=== PATIENT | male | born 1930 | race Caucasian/White ===

== ENCOUNTER 2017-10-05 15:53 | Inpatient (IN) | payer OTHER ==
[~2017-10-05] VITALS: Ht 177.8 cm; Wt 80.5 kg
[~2017-10-05 15:53] MED LIST: ACET500T63 PO; ASPI81TA59 PO; CARB1TAB2 PO; DOCU-131 PO; DORZ10DR21 EACHEYE; ENOX40SY4 SQ; MULT-208 PO; NYST60PO TP; OMEP20CA9 PO; SIMV40TA3 PO; TRAM-47 PO; [UNRECOGNIZED DRUG - CODE] PO
[2017-10-05] MEDS ORDERED: SODIUM CHLORIDE FLUSH 10ML SYR IVF ONE (16:30)
[2017-10-05 16:54] LABS: MEAN CORPUSCULAR HEMOGLOBIN 32.2 pg (27.5-34.5); MEAN CORPUSCULAR VOLUME 94.5 fL (81-97); MEAN PLATELET VOLUME 9.1 fL (7.4-10.4); PLATELET COUNT 180 x10^3/uL (130-400); RED BLOOD COUNT 4.65 x10^6/uL (4.38-5.82); RED CELL DISTRIBUTION WIDTH 14.2 % (9.4-14.8)
[2017-10-05 17:06] LABS: ALANINE AMINOTRANSFERASE 12 U/L (12-78); ALBUMIN 3.8 g/dL (3.4-5.0); ANION GAP 9 mmol/L (5-15); CALCIUM 8.5 mg/dL (8.5-10.1); CHLORIDE 105 mmol/L (98-107); CREATININE 1.14 mg/dL (0.7-1.3)
[2017-10-05 17:11] LABS: ALKALINE PHOSPHATASE 68 U/L (45-117); BILIRUBIN,TOTAL 1.1 mg/dL (0.2-1.0); TOTAL PROTEIN 7.4 g/dL (6.4-8.2); TROPONIN I < 0.015 ng/mL (0.000-0.045)
[2017-10-05 17:14] LABS: CULTURE INDICATED? NO; MICROSCOPIC NOT IND
[2017-10-05 17:42] LABS: BASOPHILS # (AUTO) 0.02 x10^3/uL (0-0.1); BASOPHILS % (AUTO) 0 % (0-1); EOSINOPHILS # (AUTO) 0.04 x10^3/uL (0-0.4); EOSINOPHILS % (AUTO) 0 % (1-7); LYMPHOCYTES # (AUTO) 2.06 x10^3/uL (1-3.4); LYMPHOCYTES % (AUTO) 13 % (22-44); MD NO; MONOCYTES # (AUTO) 2.15 x10^3/uL (0.2-0.8); MONOCYTES % (AUTO) 14 % (2-9); NEUTROPHILS # (AUTO) 11.49 x10^3/uL (1.8-6.8); NEUTROPHILS % (AUTO) 73 % (42-75)
[2017-10-05] MEDS ORDERED: OMNIPAQUE 350 MG/ML, 100ML BOTTLE ONE (19:15)
[2017-10-05] MEDS ORDERED: CEFTRIAXONE PMX 1GM/50ML 50 ML IV ONE (20:00)
[2017-10-05] MEDS ORDERED: CEFTRIAXONE PMX 1GM/50ML 50 ML ONE (20:50)
[2017-10-05] MEDS ORDERED: POLYETHYLENE GLYCOL 17 GM PACKET PO PRN (21:00)
[2017-10-05] MEDS ORDERED: BISACODYL 10 MG SUPP PR PRN (21:00)
[2017-10-05] MEDS ORDERED: CALCIUM CARBONATE 500 MG TAB.CHEW PO PRN (21:00)
[2017-10-05] MEDS ORDERED: ACETAMINOPHEN 325 MG TABLET PO PRN (21:00)
[2017-10-05] MEDS: DORZOLAMIDE HCL EACHEYE SCH (21:00)
[2017-10-05] MEDS ORDERED: ONDANSETRON ODT 4 MG PO PRN (21:00)
[2017-10-05] MEDS: HEPARIN 5,000 UNITS/ML, 1ML SQ SCH (21:00)
[2017-10-05] MEDS: TIMOLOL MALEAT EACHEYE SCH (21:00)
[2017-10-05 22:12] VITALS: BP 122/70
[2017-10-05] MEDS: CARBIDOPA/LEVODOPA 25 MG/100 MG TABLET PO SCH (23:27)
[2017-10-05] MEDS: SIMVASTATIN 40 MG TABLET PO SCH (23:27)
[2017-10-05] MEDS: SODIUM CHLORIDE 0.9% 1,000 ML IV SCH (23:27)
[2017-10-06 02:09] VITALS: BP 154/81
[2017-10-06 03:07] LABS: CLOSTRIDIUM DIFFICILE ANTIGEN NEGATIVE; CLOSTRIDIUM DIFFICILE TOXIN NEGATIVE (Negative)
[2017-10-06 05:28] LABS: MEAN CORPUSCULAR HEMOGLOBIN 31.9 pg (27.5-34.5); MEAN CORPUSCULAR HGB CONC 33.7 g/dL (33.2-36.2); MEAN CORPUSCULAR VOLUME 94.5 fL (81-97); MEAN PLATELET VOLUME 8.8 fL (7.4-10.4); PLATELET COUNT 167 x10^3/uL (130-400); RED BLOOD COUNT 4.47 x10^6/uL (4.38-5.82)
[2017-10-06 05:43] LABS: CHLORIDE 105 mmol/L (98-107)
[2017-10-06] MEDS: HEPARIN 5,000 UNITS/ML, 1ML SQ SCH ×3 (05:49→21:21)
[2017-10-06 05:50] LABS: ALANINE AMINOTRANSFERASE 9 U/L (12-78); ALBUMIN 3.5 g/dL (3.4-5.0); ALKALINE PHOSPHATASE 62 U/L (45-117); ANION GAP 9 mmol/L (5-15); CALCIUM 8.5 mg/dL (8.5-10.1); CREATININE 0.92 mg/dL (0.7-1.3); TOTAL PROTEIN 7.2 g/dL (6.4-8.2)
[2017-10-06 06:07] LABS: BASOPHILS # (AUTO) 0.06 x10^3/uL (0-0.1); BASOPHILS % (AUTO) 0 % (0-1); EOSINOPHILS # (AUTO) 0.03 x10^3/uL (0-0.4); EOSINOPHILS % (AUTO) 0 % (1-7); LYMPHOCYTES # (AUTO) 2.05 x10^3/uL (1-3.4); LYMPHOCYTES % (AUTO) 14 % (22-44); MD SCAN; MONOCYTES # (AUTO) 1.81 x10^3/uL (0.2-0.8); MONOCYTES % (AUTO) 12 % (2-9); NEUTROPHILS # (AUTO) 10.98 x10^3/uL (1.8-6.8); NEUTROPHILS % (AUTO) 74 % (42-75)
[2017-10-06 07:06] VITALS: BP 145/72
[2017-10-06] MEDS ORDERED: BISACODYL 10 MG SUPP PR PRN (09:00)
[2017-10-06] MEDS ORDERED: LACTULOSE 20 GM/30 ML UDC PO PRN (09:00)
[2017-10-06] MEDS: DORZOLAMIDE HCL EACHEYE SCH ×2 (09:00→21:00)
[2017-10-06] MEDS: TIMOLOL MALEAT EACHEYE SCH ×2 (09:00→21:00)
[2017-10-06] MEDS: OMEPRAZOLE 20 MG CAPSULE.DR PO SCH (09:34)
[2017-10-06] MEDS: CARBIDOPA/LEVODOPA 25 MG/100 MG TABLET PO SCH ×3 (09:34→21:21)
[2017-10-06] MEDS: ASPIRIN 81 MG TABLET CHEW PO SCH (09:34)
[2017-10-06] MEDS: MULTIVITAMIN 1 TABLET PO SCH (09:34)
[2017-10-06] MEDS: SODIUM CHLORIDE 0.9% 1,000 ML IV SCH ×2 (09:36→21:21)
[2017-10-06 12:43] VITALS: BP 135/74
[2017-10-06 19:13] VITALS: BP 159/77
[2017-10-06] MEDS: SIMVASTATIN 40 MG TABLET PO SCH (21:21)
[2017-10-07 00:33] VITALS: BP 139/67
[2017-10-07] MEDS: HEPARIN 5,000 UNITS/ML, 1ML SQ SCH ×3 (05:26→20:39)
[2017-10-07] MEDS: SODIUM CHLORIDE 0.9% 1,000 ML IV SCH ×2 (05:30→15:30)
[2017-10-07 05:40] LABS: MEAN CORPUSCULAR HEMOGLOBIN 31.7 pg (27.5-34.5); MEAN CORPUSCULAR HGB CONC 33.7 g/dL (33.2-36.2); MEAN PLATELET VOLUME 9.2 fL (7.4-10.4); PLATELET COUNT 168 x10^3/uL (130-400); RED BLOOD COUNT 4.23 x10^6/uL (4.38-5.82); RED CELL DISTRIBUTION WIDTH 13.8 % (9.4-14.8)
[2017-10-07 05:51] LABS: ALBUMIN 3.2 g/dL (3.4-5.0); ANION GAP 8 mmol/L (5-15); CALCIUM 8.3 mg/dL (8.5-10.1); CHLORIDE 107 mmol/L (98-107)
[2017-10-07 05:55] LABS: ALANINE AMINOTRANSFERASE 11 U/L (12-78); ALKALINE PHOSPHATASE 55 U/L (45-117); BILIRUBIN,TOTAL 1.1 mg/dL (0.2-1.0); CREATININE 0.88 mg/dL (0.7-1.3); TOTAL PROTEIN 6.7 g/dL (6.4-8.2)
[2017-10-07 06:00] LABS: BASOPHILS # (AUTO) 0.02 x10^3/uL (0-0.1); BASOPHILS % (AUTO) 0 % (0-1); EOSINOPHILS # (AUTO) 0.03 x10^3/uL (0-0.4); EOSINOPHILS % (AUTO) 0 % (1-7); LYMPHOCYTES % (AUTO) 16 % (22-44); MD SCAN; MONOCYTES # (AUTO) 1.46 x10^3/uL (0.2-0.8); MONOCYTES % (AUTO) 11 % (2-9); NEUTROPHILS # (AUTO) 9.89 x10^3/uL (1.8-6.8); NEUTROPHILS % (AUTO) 73 % (42-75)
[2017-10-07 07:01] VITALS: BP 122/66
[2017-10-07] MEDS: TIMOLOL MALEAT EACHEYE SCH ×2 (09:00→21:00)
[2017-10-07] MEDS: DORZOLAMIDE HCL EACHEYE SCH ×2 (09:00→21:00)
[2017-10-07] MEDS: OMEPRAZOLE 20 MG CAPSULE.DR PO SCH (09:09)
[2017-10-07] MEDS: ASPIRIN 81 MG TABLET CHEW PO SCH (09:09)
[2017-10-07] MEDS: CARBIDOPA/LEVODOPA 25 MG/100 MG TABLET PO SCH ×3 (09:09→20:38)
[2017-10-07] MEDS: MULTIVITAMIN 1 TABLET PO SCH (09:09)
[2017-10-07 13:43] VITALS: BP 115/64
[2017-10-07 20:00] VITALS: BP_SYST 136; BP_SYST 168; BP_DIAS 74; BP_DIAS 83
[2017-10-07] MEDS: SIMVASTATIN 40 MG TABLET PO SCH (20:38)
[2017-10-08 00:34] VITALS: BP 138/79
[2017-10-08] MEDS: SODIUM CHLORIDE 0.9% 1,000 ML IV SCH (00:35)
[2017-10-08] MEDS: HEPARIN 5,000 UNITS/ML, 1ML SQ SCH ×3 (05:31→20:49)
[2017-10-08 06:53] VITALS: BP 152/76
[2017-10-08] MEDS: DORZOLAMIDE HCL EACHEYE SCH ×2 (09:00→20:56)
[2017-10-08] MEDS: TIMOLOL MALEAT EACHEYE SCH ×2 (09:00→20:56)
[2017-10-08 10:19] LABS: BASOPHILS # (AUTO) 0.04 x10^3/uL (0-0.1); BASOPHILS % (AUTO) 1 % (0-1); EOSINOPHILS # (AUTO) 0.15 x10^3/uL (0-0.4); EOSINOPHILS % (AUTO) 2 % (1-7); LYMPHOCYTES % (AUTO) 20 % (22-44); MD NO; MEAN CORPUSCULAR HEMOGLOBIN 31.7 pg (27.5-34.5); MEAN CORPUSCULAR HGB CONC 33.7 g/dL (33.2-36.2); MEAN CORPUSCULAR VOLUME 94.1 fL (81-97); MEAN PLATELET VOLUME 8.7 fL (7.4-10.4); MONOCYTES # (AUTO) 0.64 x10^3/uL (0.2-0.8); MONOCYTES % (AUTO) 7 % (2-9); NEUTROPHILS # (AUTO) 6.45 x10^3/uL (1.8-6.8); NEUTROPHILS % (AUTO) 71 % (42-75); PLATELET COUNT 192 x10^3/uL (130-400); RED BLOOD COUNT 4.35 x10^6/uL (4.38-5.82); RED CELL DISTRIBUTION WIDTH 13.6 % (9.4-14.8)
[2017-10-08] MEDS: MULTIVITAMIN 1 TABLET PO SCH (10:53)
[2017-10-08] MEDS: OMEPRAZOLE 20 MG CAPSULE.DR PO SCH (10:53)
[2017-10-08] MEDS: ASPIRIN 81 MG TABLET CHEW PO SCH (10:53)
[2017-10-08] MEDS: CARBIDOPA/LEVODOPA 25 MG/100 MG TABLET PO SCH ×3 (10:54→20:49)
[2017-10-08 15:55] VITALS: BP 138/79
[2017-10-08 19:01] VITALS: BP 161/80
[2017-10-08] MEDS: SIMVASTATIN 40 MG TABLET PO SCH (20:49)
[2017-10-09 02:37] VITALS: BP 159/75
[2017-10-09] MEDS: HEPARIN 5,000 UNITS/ML, 1ML SQ SCH ×2 (04:52→13:56)
[2017-10-09 06:10] VITALS: BP 147/78
[2017-10-09] MEDS: DORZOLAMIDE HCL EACHEYE SCH (09:00)
[2017-10-09] MEDS: TIMOLOL MALEAT EACHEYE SCH (09:00)
[2017-10-09] MEDS: OMEPRAZOLE 20 MG CAPSULE.DR PO SCH (10:26)
[2017-10-09] MEDS: MULTIVITAMIN 1 TABLET PO SCH (10:26)
[2017-10-09] MEDS: CARBIDOPA/LEVODOPA 25 MG/100 MG TABLET PO SCH ×2 (10:26→18:05)
[2017-10-09] MEDS: ASPIRIN 81 MG TABLET CHEW PO SCH (10:26)
[2017-10-09 16:08] VITALS: BP 168/80
[2017-10-09 16:15] VITALS: BP 106/69
== END 2017-10-09 18:33 | DRG 864 ==
LOC: MERGE 15:53 → ED 17:31 → EDIP 20:49 → 3NE 21:35
PROVIDERS: ADMIT Hospitalist; ATTEND Hospitalist
DX: R50.9 Fever, unspecified (principal); G93.40 Encephalopathy, unspecified; I69.354 Hemiplegia and hemiparesis following cerebral infarction affecting left non-dominant side; G20 Parkinson's disease; E44.1 Mild protein-calorie malnutrition; R65.10 Systemic inflammatory response syndrome (SIRS) of non-infectious origin without acute organ dysfunction; F03.90 Unspecified dementia, unspecified severity, without behavioral disturbance, psychotic disturbance, mood disturbance, and anxiety; R29.6 Repeated falls; Z85.46 Personal history of malignant neoplasm of prostate; E78.5 Hyperlipidemia, unspecified; H40.9 Unspecified glaucoma; D72.829 Elevated white blood cell count, unspecified; Z68.25 Body mass index [BMI] 25.0-25.9, adult; K21.9 Gastro-esophageal reflux disease without esophagitis; K57.30 Diverticulosis of large intestine without perforation or abscess without bleeding; K59.00 Constipation, unspecified; N40.0 Benign prostatic hyperplasia without lower urinary tract symptoms; Z82.49 Family history of ischemic heart disease and other diseases of the circulatory system; K57.90 Diverticulosis of intestine, part unspecified, without perforation or abscess without bleeding; Z88.5 Allergy status to narcotic agent
CPT/HCPCS: 36415; 70450; 71045; 74177; 80053; 81003; 84484; 85025; 87040; 87324; 93005; 96374; J0696; J1644; Q9967; J7030